=== PATIENT | female | born 1970 | race Caucasian/White ===

== ENCOUNTER 2017-06-14 14:24 | Emergency (ER) | payer OTHER ==
[~2017-06-14] VITALS: Ht 165.1 cm; Wt 84.8 kg
[2017-06-14 14:29] VITALS: TEMP 37.1; Ht 165.1 cm; Wt 84.8 kg
[2017-06-14] MEDS ORDERED: DICL-201 PO (16:23)
[2017-06-14] MEDS ORDERED: VALA500T60 PO (16:23)
[2017-06-14] MEDS ORDERED: CLON0.5T3 PO (16:23)
[2017-06-14] MEDS ORDERED: CLR10 PO (16:23)
[2017-06-14] MEDS ORDERED: OMEP20TA PO (16:23)
[2017-06-14 16:48] LABS: BASO % 0.5 %; BASO ABS # 0.06 K/uL (0-0.2); EOS % 1.6 %; EOS ABS # 0.19 K/uL (0-0.5); HEMATOCRIT 44.9 % (37-47); HEMOGLOBIN 15.7 g/dL (12.0-16.0); IG# 0.03 K/uL (0.00-0.02); LYMPH % 22.9 %; LYMPH ABS # 2.67 K/uL (1.2-3.4); MEAN CELL VOLUME 99.8 fL (80-100); MEAN CORPUSCULAR HEMOGLOBIN 34.9 pg (25-34); MEAN PLATELET VOLUME 9.6 fL (7.4-10.4); MONO % 6.3 %; MONO ABS # 0.73 K/uL (0.11-0.59); NEUT % 68.4 %; NEUT ABS # 7.99 K/uL (1.4-6.5); PLATELET COUNT 247 K/uL (130-400); RED CELL DISTRIBUTION WIDTH CV 14.5 % (11.5-14.5); RED CELL DISTRIBUTION WIDTH SD 52.8 fL (36.4-46.3); WHITE BLOOD COUNT 11.67 K/uL (4.8-10.8)
--- NOTE | 2017-06-14 16:50 | DIAGNOSTIC IMAGING REPORT ---
CHEST ONE VIEW PORTABLE CLINICAL HISTORY: chest pain dyspnea COMPARISON STUDY: No previous studies for comparison. FINDINGS: The bones soft tissues and hemidiaphragms are normal. The cardiomediastinal silhouette is normal. The lungs are clear. The pulmonary vasculature is normal. IMPRESSION: Negative chest. The above report was generated using voice recognition software. It may contain grammatical, syntax or spelling errors. Electronically signed by: Errol Lowry M.D. 06/14/2017 4:48 PM Dictated Date/Time: 06/14/2017 4:48 PM
[2017-06-14 17:09] LABS: INR 0.9 (0.9-1.1)
[2017-06-14 17:13] LABS: ALBUMIN 4.2 gm/dl (3.4-5.0); ALT/SGPT 85 U/L (12-78); BLOOD UREA NITROGEN 10 mg/dl (7-18); CALCIUM 9.8 mg/dl (8.5-10.1); CARBON DIOXIDE 26 mmol/L (21-32); CREATININE 0.91 mg/dl (0.60-1.20); GLUCOSE 81 mg/dl (70-99); LIPASE 226 U/L (73-393); POTASSIUM 3.9 mmol/L (3.5-5.1); SODIUM 137 mmol/L (136-145)
[2017-06-14 17:24] LABS: ALKALINE PHOSPHATASE 67 U/L (45-117); AST/SGOT 65 U/L (15-37); TOTAL PROTEIN 8.9 gm/dl (6.4-8.2)
[2017-06-14] MEDS ORDERED: KETOROLAC TROMETHAMINE 30 MG/ML VIAL IV STA (17:39)
[2017-06-14] MEDS ORDERED: ALUMINUM/MAGNESIUM SUSP 30 ML UDC PO STA (17:39)
[2017-06-14] MEDS ORDERED: SODIUM CHLORIDE 0.9% 500ML 500 ML IV STA (17:42)
[2017-06-14 17:57] VITALS: O2SAT 98
--- NOTE | 2017-06-14 18:18 | DIAGNOSTIC IMAGING REPORT ---
HEAD WITHOUT CONTRAST (CT) CT DOSE: 537.48 mGy.cm HISTORY: Headaches. Hypertension. herrmann, htn TECHNIQUE: Multiaxial CT images of the head were performed without the use of intravenous contrast. A dose lowering technique was utilized adhering to the principles of ALARA. Comparison: None. Findings: The paranasal sinuses and mastoid air cells are clear. The calvarium and skull base are intact. The ventricles and sulci are within normal limits. There is no mass, hematoma, midline shift, or acute infarct. Impression: No acute intracranial abnormality. The above report was generated using voice recognition software. It may contain grammatical, syntax or spelling errors. Electronically signed by: Errol Lowry M.D. 06/14/2017 6:17 PM Dictated Date/Time: 06/14/2017 6:16 PM
--- NOTE | 2017-06-14 18:29 | EMERGENCY ROOM VISIT NOTE ---
History Report prepared by Jeff: Vinay Carroll Under the Supervision of: Dr. Leeanna Abbott D.O. First contact with patient: 15:52 Chief Complaint: CHEST PAIN Stated Complaint: CHEST PAIN Nursing Triage Summary: pt works at [employer] sent here for eval of chest pain strated at 1130 today radiates to back had 2 ekg prior to coming 1 normal 1 abnormal feels nauseated and dizzy History of Present Illness The patient is a 46 year old female who presents to the Emergency Room with complaints of constant centralized chest pain beginning 4.5 hours ago. Her pain began as "dull", but has become "sharp". She also complains of nausea, left neck pain, and dizziness. The patient works in the hospital, and had three ECG' s when she informed physicians of her pain. She states that the first ECG was normal, the second was abnormal, and the third was normal again. The patient denies change in diet. She denies diarrhea, SOB, urinary symptoms, fevers, or chills. She notes that she has had a cough recently which she attributes to seasonal allergies. The patient finished taking an antibiotic about a week ago. She has a history of GERD for which she is on omeprazole. She is a smoker. The patient is on Klonopin as needed. Source of History: patient Onset: 4.5 hours ago Position: chest (centralized) Quality: sharp (now), dull (initially) Timing: constant Associated Symptoms: + cough, + neck pain (left), + nausea, No fevers, No chills, No SOB, No diarrhea, No urinary symptoms Note: Positive: dizziness. Review of Systems See HPI for pertinent positives & negatives. A total of 10 systems reviewed and were otherwise negative. Past Medical & Surgical Medical Problems: (1) Anxiety (2) GERD (gastroesophageal reflux disease) Family History No pertinent family history stated. Social History Smoking Status: Current Every Day Smoker Occupation Status: employed Current/Historical Medications Scheduled PRN Clonazepam (Klonopin), 0.5 MG PO DAILY PRN for Anxiety Diclofenac (Voltaren), 75 MG PO BID PRN for Joint Pain Loratadine (Claritin), 10 MG PO DAILY PRN for Allergy Symptoms Omeprazole (Omeprazole), 20 MG PO DAILY PRN for Acid Reflux Valacyclovir (Valtrex), 1,000 MG PO UD PRN for Cold Sore(s) Allergies Coded Allergies: No Known Allergies (Unverified , 06/14/17) Physical Exam Vital Signs Date Time Temp Pulse Resp B/P (MAP) Pulse Ox O2 Delivery O2 Flow Rate FiO2 06/14/17 19:10 77 140/103 06/14/17 18:25 82 164/106 06/14/17 17:57 80 20 174/108 98 Room Air 06/14/17 16:41 76 06/14/17 16:30 76 20 154/100 98 Room Air 06/14/17 14:29 37.1 103 20 193/114 96 Room Air Physical Exam GENERAL: alert, well appearing, well nourished, no distress, non-toxic EYE EXAM: normal conjunctiva, PERRL and EOM's grossly intact OROPHARYNX: no exudate, no erythema, lips, buccal mucosa, and tongue normal and mucous membranes are moist NECK: supple, no nuchal rigidity, no adenopathy, non-tender LUNGS: Clear to auscultation. Normal chest wall mechanics HEART: no murmurs, S1 normal and S2 normal, no reproducible chest wall pain. ABDOMEN: abdomen soft, non-tender, normo-active bowel sounds, no masses, no rebound or guarding. BACK: Back is symmetrical on inspection and there is no deformity, no midline tenderness, no CVA tenderness. SKIN: no rashes and no bruising UPPER EXTREMITIES: upper extremities are grossly normal. Full range of motion, normal pulses bilaterally. LOWER EXTREMITIES: No pitting edema. Full range of motion, normal pulses bilaterally. NEURO EXAM: Normal sensorium, cranial nerves II-XII grossly intact, normal speech, no gross weakness of arms, no gross weakness of legs. No facial droop , normal gait. Medical Decision & Procedures ER Provider Diagnostic Interpretation: Radiology results have been interpreted by the radiologist and reviewed by me. CHEST ONE VIEW PORTABLE FINDINGS: The bones soft tissues and hemidiaphragms are normal. The cardiomediastinal silhouette is normal. The lungs are clear. The pulmonary vasculature is normal. IMPRESSION: Negative chest. The above report was generated using voice recognition software. It may contain grammatical, syntax or spelling errors. Electronically signed by: Malik Lowry M.D. 06/14/2017 4:48 PM HEAD WITHOUT CONTRAST (CT) CT DOSE: 537.48 mGy.cm HISTORY: Headaches. Hypertension. herrmann, htn TECHNIQUE: Multiaxial CT images of the head were performed without the use of intravenous contrast. A dose lowering technique was utilized adhering to the principles of ALARA. Comparison: None. Findings: The paranasal sinuses and mastoid air cells are clear. The calvarium and skull base are intact. The ventricles and sulci are within normal limits. There is no mass, hematoma, midline shift, or acute infarct. Impression: No acute intracranial abnormality. The above report was generated using voice recognition software. It may contain grammatical, syntax or spelling errors. Electronically signed by: Malik Lowry M.D. 06/14/2017 6:17 PM Dictated Date/Time: 06/14/2017 6:16 PM Laboratory Results 06/14/17 16:30 Red Blood Count 4.50, Mean Corpuscular Volume 99.8, Mean Corpuscular Hemoglobin 34.9, Mean Corpuscular Hemoglobin Concent 35.0, Mean Platelet Volume 9.6, Neutrophils (%) (Auto) 68.4, Lymphocytes (%) (Auto) 22.9, Monocytes (%) (Auto) 6.3, Eosinophils (%) (Auto) 1.6, Basophils (%) (Auto) 0.5, Neutrophils # (Auto) 7.99, Lymphocytes # (Auto) 2.67, Monocytes # (Auto) 0.73, Eosinophils # (Auto) 0.19, Basophils # (Auto) 0.06 06/14/17 16:30 Test 06/14/17 16:30 06/14/17 17:19 06/14/17 18:53 White Blood Count 11.67 K/uL (4.8-10.8) Red Blood Count 4.50 M/uL (4.2-5.4) Hemoglobin 15.7 g/dL (12.0-16.0) Hematocrit 44.9 % (37-47) Mean Corpuscular Volume 99.8 fL (80-100) Mean Corpuscular Hemoglobin 34.9 pg (25-34) Mean Corpuscular Hemoglobin Concent 35.0 g/dl (32-36) Platelet Count 247 K/uL (130-400) Mean Platelet Volume 9.6 fL (7.4-10.4) Neutrophils (%) (Auto) 68.4 % Lymphocytes (%) (Auto) 22.9 % Monocytes (%) (Auto) 6.3 % Eosinophils (%) (Auto) 1.6 % Basophils (%) (Auto) 0.5 % Neutrophils # (Auto) 7.99 K/uL (1.4-6.5) Lymphocytes # (Auto) 2.67 K/uL (1.2-3.4) Monocytes # (Auto) 0.73 K/uL (0.11-0.59) Eosinophils # (Auto) 0.19 K/uL (0-0.5) Basophils # (Auto) 0.06 K/uL (0-0.2) RDW Standard Deviation 52.8 fL (36.4-46.3) RDW Coefficient of Variation 14.5 % (11.5-14.5) Immature Granulocyte % (Auto) 0.3 % Immature Granulocyte # (Auto) 0.03 K/uL (0.00-0.02) Prothrombin Time 9.8 SECONDS (9.0-12.0) Prothromb Time International Ratio 0.9 (0.9-1.1) D-Dimer 440 ug/L FEU (0-500) Anion Gap 8.0 mmol/L (3-11) Est Creatinine Clear Calc Drug Dose 83.1 ml/min Estimated GFR () 87.7 Estimated GFR (Non- 75.7 BUN/Creatinine Ratio 11.4 (10-20) Calcium Level 9.8 mg/dl (8.5-10.1) Magnesium Level 2.2 mg/dl (1.8-2.4) Total Bilirubin 0.6 mg/dl (0.2-1) Aspartate Amino Transf (AST/SGOT) 65 U/L (15-37) Alanine Aminotransferase (ALT/SGPT) 85 U/L (12-78) Alkaline Phosphatase 67 U/L (45-117) Troponin I < 0.015 ng/ml (0-0.045) Total Protein 8.9 gm/dl (6.4-8.2) Albumin 4.2 gm/dl (3.4-5.0) Globulin 4.7 gm/dl (2.5-4.0) Albumin/Globulin Ratio 0.9 (0.9-2) Lipase 226 U/L (73-393) Thyroid Stimulating Hormone (TSH) 5.100 uIu/ml (0.300-4.500) Human Chorionic Gonadotropin, Qual NEG (NEG) Bedside Troponin I < 0.030 ng/ml (0-0.045) Laboratory results per my review. Medications Administered Medications (Trade) Dose Ordered Sig/Aidan Route Start Time Stop Time Status Last Admin Dose Admin Al Hydroxide/Mg Hydroxide (Maalox Susp) 30 ml NOW STAT PO 06/14/17 17:39 06/14/17 17:40 DC 06/14/17 17:57 30 ML Ketorolac Tromethamine (Toradol Inj) 30 mg NOW STAT IV 06/14/17 17:39 06/14/17 17:40 DC 06/14/17 17:56 30 MG Sodium Chloride 500 ml @ 999 mls/hr Q31M STAT IV 06/14/17 17:42 06/14/17 18:12 DC 06/14/17 17:57 999 MLS/HR Acetaminophen (Tylenol Tab) 1,000 mg NOW STAT PO 06/14/17 18:39 06/14/17 18:40 DC 06/14/17 19:09 1,000 MG ECG Per My Interpretation Indication: chest pain Rate (beats per minute): 96 Rhythm: normal sinus Findings: no acute ischemic change, no ectopy, other (Normal axis. Normal intervals. ) ED Course 1555: The patient was evaluated in room B6. A complete history and physical exam was performed. 173: Blood pressures are elevated, patient with worsening headache. No focal neuro deficits noted. Patient denies vision changes or dizziness. 1840: Patient reports feeling better. Blood pressure improved. Headache is improved also. Patient updated on all results. 1916: Patient markedly improved here, no further symptoms. Blood pressure improved also. Repeat troponin negative. Discussed with patient appointment with her family doctor the end of the week. Symptoms to watch and return for, she verbalized understanding was agreeable with plan. Medical Decision Differential diagnosis: Etiologies such as cardiac ischemia, aortic dissection, pulmonary embolism, pneumonia, pneumothorax, musculoskeletal, infections, pericarditis, myocarditis , esophageal rupture, gastrointestinal, as well as others were entertained. Heart score 1 Low risk Wells and dimer negative Patient well-appearing here despite complaints, no apparent distress. Patient hemodynamically stable, although some hypertension was initially noted, this improved spontaneously without any need for medication as the patient rested. Patient states she has a history of white coat syndrome and this frequently happens when she goes to the doctor's office. Patient with atypical onset of chest pain today already 45 hours into pain by the time of presentation the emergency room. EKG here reassuring, labs and imaging reassuring. Patient monitored in the second troponin drawn as a precaution once patient was beyond the 6 hour malik and this was negative also. Patient with equal pulses bilaterally, no other neurologic symptoms or findings, and symptoms improved following observation time here. Discussed with patient possible hypertensive urgency, need for close follow-up and recheck of her blood pressure. Discussed possibly related to her known GERD, or manifestation of stress/anxiety. I do not suspect ACS at this time. I have a low suspicion for any vascular etiology , PE, occult infectious process. Patient states prior URI/bronchitis symptoms had resolved. Patient counseled against smoking which she continues to do, and I advised her this could contribute to an increased risk for heart attack, stroke, as well as vascular disease. Patient verbalized understanding of all this. Patient's symptoms resolved by the time of discharge, patient was well- appearing, asking to be discharged, and stated she will follow closely with her family doctor. Discussed with her symptoms to watch and return for, additional need for outpatient testing which could be ordered by her family doctor or by cardiology. Patient verbalized understanding of all of this and was agreeable with plan. Medication Reconcilliation Current Medication List: was personally reviewed by me Blood Pressure Screening Patient's blood pressure: Elevated blood pressure Blood pressure disposition: Referred to PCP Impression Primary Impression: Chest pain Additional Impressions: Hypertension Anxiety Tobacco abuse Scribe Attestation The scribe's documentation has been prepared under my direction and personally reviewed by me in its entirety. I confirm that the note above accurately reflects all work, treatment, procedures, and medical decision making performed by me. Departure Information Dispostion Home / Self-Care Referrals No Doctor, Assigned (PCP) Patient Instructions [facility] [place] Additional Instructions Please drink plenty of water to stay well-hydrated. Please use your medications as prescribed. Please avoid any extra salt in your diet as this could contribute to high blood pressure. Please keep your appointment with your family doctor on Tuesday and discussed with them your recent symptoms and elevated blood pressure. If you continue to have elevated blood pressure readings, he may need to be started on additional medication. If you have any recurrent episodes of chest pain or pressure, develop dizziness, vomiting, trouble breathing, headaches, vision changes, numbness or tingling, you have any other new concerns, please return the emergency room. Problem Qualifiers Primary Impression: Chest pain Chest pain type: unspecified Qualified Codes: R07.9 - Chest pain, unspecified Additional Impressions: Hypertension Hypertension type: essential hypertension Qualified Codes: I10 - Essential ( primary) hypertension
[2017-06-14] MEDS ORDERED: ACETAMINOPHEN 500 MG TAB PO STA (18:39)
[2017-06-14 19:10] VITALS: BP 140/103; PULSE 77
== END 2017-06-14 19:25 | disposition home or self-care (01) ==
LOC: C.EDB 14:26
DX: R07.9 Chest pain, unspecified (principal); I10 Essential (primary) hypertension; F41.9 Anxiety disorder, unspecified; R11.0 Nausea; M54.2 Cervicalgia; R42 Dizziness and giddiness; K21.9 Gastro-esophageal reflux disease without esophagitis; R05 Cough; F17.200 Nicotine dependence, unspecified, uncomplicated